=== PATIENT | male | born 1940 | race Caucasian/White ===

== ENCOUNTER 2016-12-21 13:13 | Emergency (ER) | payer OTHER ==
[~2016-12-21] VITALS: Ht 170.2 cm; Wt 63.0 kg
[~2016-12-21 13:13] MED LIST: FLURAZEPAM15 MG OR; LORAZEPAM0.5 MG PO; METAMUCIL0.52 G1 PO; NAPROSYN500 MG OR
[2016-12-21] MEDS ORDERED: EC-NAPROSYN500 MG PO (13:46)
[2016-12-21 14:02] VITALS: BP 92/59
== END 2016-12-21 14:02 | disposition home or self-care (01) | DRG 552 ==
LOC: ED 13:13
DX: M54.32 Sciatica, left side (principal); M79.605 Pain in left leg